=== PATIENT | male | born 2000 | race Caucasian/White ===

== ENCOUNTER 2023-05-23 18:36 | Emergency (ER) | payer OTHER ==
[~2023-05-23] VITALS: Ht 165.1 cm; Wt 79.4 kg
[2023-05-23 19:53] VITALS: BP 150/98; PULSE 85; RESP 20; TEMP 97.6; O2SAT 95
[2023-05-23] MEDS ORDERED: IBUP-2213 PO (22:33)
[2023-05-23] MEDS ORDERED: ONDA8TAB87 PO (22:33)
== END 2023-05-23 23:20 | disposition home or self-care (01) ==
LOC: MED 18:36
DX: R07.89 Other chest pain (principal); Z79.899 Other long term (current) drug therapy; Z79.1 Long term (current) use of non-steroidal anti-inflammatories (NSAID)
CPT/HCPCS: 71045; 93005; 99283